=== PATIENT | female | born 1970 | race Caucasian/White ===

== ENCOUNTER 2018-03-31 17:33 | Emergency (ER) | payer MEDICAID ==
[2018-03-31] MEDS: DIPHTH/TET/ACEL PERTUSS (ADULT) 0.5 ML VIAL IM* (20:50)
[2018-03-31] MEDS: LIDOCAINE 1% (MDV) 10 ML INJ INJ (21:27)
== END 2018-03-31 21:37 | disposition home or self-care (01) ==
LOC: FTE 17:33
DX: S61.412A Laceration without foreign body of left hand, initial encounter (principal); W26.8XXA Contact with other sharp object(s), not elsewhere classified, initial encounter; Y92.9 Unspecified place or not applicable; Z23 Encounter for immunization
CPT/HCPCS: 12001; 90471; 90715; 99283-25

== ENCOUNTER 2018-04-03 10:34 | Emergency (ER) | payer MEDICAID | END 2018-04-03 11:14 | disposition home or self-care (01) | LOC: FTE 10:34 | DX: Z48.01 Encounter for change or removal of surgical wound dressing (principal) | CPT/HCPCS: 99281; Z7502 ==

== ENCOUNTER 2018-04-10 10:56 | Emergency (ER) | payer MEDICAID | END 2018-04-10 11:40 | disposition home or self-care (01) | LOC: FTE 10:56 | DX: Z48.02 Encounter for removal of sutures (principal) | CPT/HCPCS: 99281; Z7502 ==